=== PATIENT | female | born 1965 | race Caucasian/White ===

== ENCOUNTER → 2016-12-15 | Outpatient (CLI) | payer BC ==
[~2016-12-15] MED LIST: LOTREL 5-20 MG1 EACH PO; NORCO 10-325 T1 EACH PO; PLAQUENIL 200200 MG PO
[2016-12-15 09:42] LABS: HEMOGLOBIN 14.6 gm/dl (12.3-15.3); RED BLOOD COUNT 4.55 M/UL (4.00-5.10); WHITE BLOOD COUNT 3.7 K/UL (4.5-11.0)
[2016-12-15 09:48] LABS: BUN/CREATININE RATIO 17 (0-10)
== END ==
LOC: LAB 08:13
PROVIDERS: Internal Medicine
DX: I10 Essential (primary) hypertension (principal); R73.01 Impaired fasting glucose; E55.9 Vitamin D deficiency, unspecified; M06.4 Inflammatory polyarthropathy; D72.819 Decreased white blood cell count, unspecified
CPT/HCPCS: 36415; 80048; 85025

== ENCOUNTER 2017-01-15 18:48 | Inpatient (IN) | payer BC ==
[~2017-01-15] VITALS: Ht 167.6 cm; Wt 113.0 kg
[2017-01-16] MEDS ORDERED: LOTREL 5-20 MG1 EACH PO (01:03)
[2017-01-16] MEDS ORDERED: PLAQUENIL 200200 MG PO (01:04)
[2017-01-16 04:17] LABS: HEMOGLOBIN 13.3 gm/dl (12.3-15.3); RED BLOOD COUNT 4.17 M/UL (4.00-5.10); WHITE BLOOD COUNT 6.4 K/UL (4.5-11.0)
[2017-01-16 04:35] LABS: BUN/CREATININE RATIO 17 (0-10)
[2017-01-17] MEDS ORDERED: NORCO 10-325 T1 EACH PO (17:03)
== END 2017-01-17 17:26 | disposition home or self-care (01) | DRG 493 ==
LOC: ER1 18:48 → M/S 22:15 → ZEROF 22:15 → M/S 01-16 00:38
PROVIDERS: Orthopaedic Surgery; ADMIT Internal Medicine
PROC: 0QSGXZZ Reposition Right Tibia, External Approach (ICD-10-PCS; 2017-01-15)
PROC: 0QSJ04Z Reposition Right Fibula with Internal Fixation Device, Open Approach (ICD-10-PCS; 2017-01-16)
PROC: 0SQF0ZZ Repair Right Ankle Joint, Open Approach (ICD-10-PCS; 2017-01-16)
PROC: 3E0T3CZ (ICD-10-PCS; 2017-01-16)
PROC: 0QSG04Z Reposition Right Tibia with Internal Fixation Device, Open Approach (ICD-10-PCS; principal; 2017-01-16 11:27)
DX: S82.841A Displaced bimalleolar fracture of right lower leg, initial encounter for closed fracture (principal); Z68.41 Body mass index [BMI] 40.0-44.9, adult; W17.89XA Other fall from one level to another, initial encounter; X50.1XXA Overexertion from prolonged static or awkward postures, initial encounter; S93.491A Sprain of other ligament of right ankle, initial encounter; E66.01 Morbid (severe) obesity due to excess calories; M32.9 Systemic lupus erythematosus, unspecified; I10 Essential (primary) hypertension; S90.414A Abrasion, right lesser toe(s), initial encounter; Z79.899 Other long term (current) drug therapy; Z90.710 Acquired absence of both cervix and uterus; Z98.890 Other specified postprocedural states; Z82.49 Family history of ischemic heart disease and other diseases of the circulatory system; Z83.3 Family history of diabetes mellitus; Z82.3 Family history of stroke; Z82.61 Family history of arthritis; Z80.1 Family history of malignant neoplasm of trachea, bronchus and lung
CPT/HCPCS: 36415; 73600; 73610; 73630; 76000; 80048; 85027; 85610; 85730; 93005; 96374; 97116; 99284; C1713; J0690; J2250; J2270; J2795; J3010; J7030; J7120

== ENCOUNTER → 2020-12-08 | Outpatient (CLI) | payer BC ==
[~2020-12-08] MED LIST changes: +ELIQUIS2.5 MG PO; +IBUPROFEN800 MG PO; +PERCOCET 10-321 EACH PO
== END ==
LOC: RAD 12:30
DX: M54.12 Radiculopathy, cervical region (principal); M50.322 Other cervical disc degeneration at C5-C6 level
CPT/HCPCS: 72040

== ENCOUNTER → 2021-02-17 | Outpatient (CLI) | payer BC | LOC: MAMO 11:07 | DX: Z12.31 Encounter for screening mammogram for malignant neoplasm of breast (principal) | CPT/HCPCS: 77063; 77067 ==

== ENCOUNTER → 2021-08-10 | Outpatient (CLI) | payer BC ==
[~2021-08-10] MED LIST changes: +IBUPROFEN200 MG PO; +ISOSORBIDE MONO30 MG PO; +MELATONIN5 M2 PO
[2021-08-10 08:28] LABS: HEMOGLOBIN 14.5 gm/dl (12.3-15.3); RED BLOOD COUNT 4.51 M/UL (4.00-5.10); WHITE BLOOD COUNT 3.4 K/UL (4.5-11.0)
[2021-08-10 08:57] LABS: BUN/CREATININE RATIO 21 (0-10)
== END ==
LOC: OPSV2 07:52 → EDSTATUS 08:00
PROVIDERS: Orthopaedic Surgery
DX: Z01.818 Encounter for other preprocedural examination (principal); M17.11 Unilateral primary osteoarthritis, right knee; I10 Essential (primary) hypertension
CPT/HCPCS: 80048; 85027; 93005

== ENCOUNTER → 2021-08-23 | Outpatient (CLI) | payer BC ==
[~2021-08-23] MED LIST changes: +ASPIRIN EC81 MG PO; +CYCLOBENZAPRINE10 MG PO; +OXYCODON-ACETA1 EAC1 PO; +ZOFRAN4 MG PO
[2021-08-23 15:55] LABS: BUN/CREATININE RATIO 15 (0-10)
== END ==
LOC: LAB 10:13
PROVIDERS: Orthopaedic Surgery
DX: Z01.812 Encounter for preprocedural laboratory examination (principal); M17.12 Unilateral primary osteoarthritis, left knee; I10 Essential (primary) hypertension
CPT/HCPCS: 36415; 80048; 86850; 86900; 86901

== ENCOUNTER → 2021-10-19 | Outpatient (CLI) | payer BC ==
[2021-10-20 07:11] LABS: A/G RATIO 1.6 (1.2-2.2); ALKALINE PHOSPHATASE, S 87 IU/L (44-121); ALT (SGPT) 20 IU/L (0-32); AST (SGOT) 20 IU/L (0-40); BILIRUBIN, TOTAL 0.3 mg/dL (0.0-1.2); BUN 11 mg/dL (6-24); BUN/CREATININE RATIO 17 (9-23); CALCIUM, SERUM 9.6 mg/dL (8.7-10.2); CARBON DIOXIDE, TOTAL 22 mmol/L (20-29); CHLORIDE, SERUM 106 mmol/L (96-106); CHOLESTEROL, TOTAL 149 mg/dL (100-199); CREATININE, SERUM 0.64 mg/dL (0.57-1.00); GLOBULIN, TOTAL 2.7 g/dL (1.5-4.5); GLUCOSE, SERUM 106 mg/dL (65-99); HDL CHOLESTEROL 47 mg/dL (>39); LDL CHOLESTEROL CALC 82 mg/dL (0-99); LDL/HDL RATIO 1.7 ratio (0.0-3.2); POTASSIUM, SERUM 4.1 mmol/L (3.5-5.2); SODIUM, SERUM 144 mmol/L (134-144); T. CHOL/HDL RATIO 3.2 ratio (0.0-4.4); TRIGLYCERIDES 107 mg/dL (0-149)
[2021-10-20 09:15] LABS: FREE THYROXINE INDEX 2.6 (1.2-4.9); THYROXINE (T4) 9.9 ug/dL (4.5-12.0)
== END ==
LOC: LAB 08:13
PROVIDERS: Internal Medicine Cardiovascular Disease
DX: R94.39 Abnormal result of other cardiovascular function study (principal); I20.9 Angina pectoris, unspecified; I10 Essential (primary) hypertension; I49.1 Atrial premature depolarization; I49.3 Ventricular premature depolarization
CPT/HCPCS: 36415; 80053; 80061; 84436; 84479